=== PATIENT | male | born 1990 | race Caucasian/White ===

== ENCOUNTER 2020-06-09 17:13 | Emergency (ER) | payer SELFPAY ==
[2020-06-09 17:23] VITALS: BP 144/94; PULSE 97; RESP 18; TEMP 36.6; O2SAT 96; BMI 33.4
--- NOTE | 2020-06-09 18:20 | ED_ITS ---
HPI - Skin/Abscess/Foreign Bdy General: Chief complaint: Animal Bite Stated complaint: possible spider bite Time Seen by Provider: 06/09/20 18:20 Source: patient Mode of arrival: ambulatory Limitations: no limitations History of Present Illness: HPI narrative: Patient is a 30-year-old male presents to ED today with complaints of a possible spider bite to his left knee. Patient states he initially noticed the lesion a few days ago. He does have a history of staph infections. Patient is also noticed a smaller lesion that has come up recently to the left lower leg. He reports swelling. Patient has not been running fevers. MD complaint: insect bite/sting and abscess/boil Onset (ago): day(s) Tetanus up to date: yes Location: LLE Quality: burning Relieving factors: none Exacerbating factors: none Context: none Associated symptoms: Reports no associated symptoms; Deny chills, fever(s), nausea or vomiting Treatments prior to arrival: attempted to drain pus at home Review of Systems Const: Denies: fever(s), chills, body aches or fatigue Card: Denies: chest pain Resp: Denies: dyspnea GI: Denies: abdominal pain, nausea or vomiting Musc: Reports: extremity pain and extremity swelling; Denies: neck pain, back pain, joint pain, joint redness, joint warmth or limited range of motion Skin/Breast: Reports: new lesions Neuro: Denies: headache(s), numbness in extremities, weakness in extremities or sensory changes [facility] PFSH: Social History (Updated 06/09/20 @ 17:28 by Willian Barnes RN) Alcohol intake: current Alcohol intake frequency: 0-2 Drinks per Day Alcohol type: beer Substance/Drug Use: never Physical Exam Const: COMMON NORMALS: no acute distress, average body habitus, patient oriented x3, no limitations, healthy appearing, alert and well nourished Extremity: OTHER: pt has a 1.5 inch circular area of erythema to anterior L knee-lesion has small central pustule formation; he has one very small 0.5 flat erythematous lesion to lateral left lower leg; he has mild cellulitis forming to medial lower extremity; no significant swelling noted; NV intact Neuro: COMMON NORMALS: patient oriented x3 SENSORIUM/ORIENTATION: Yes alert Skin: OTHER: see extremity assessment Course Vital Signs: Vital signs: Vital Signs Temperature 97.9 F 06/09/20 17:23 Pulse Rate 85 06/09/20 18:29 Respiratory Rate 18 06/09/20 18:29 Blood Pressure 148/83 06/09/20 18:29 Pulse Oximetry 96 06/09/20 18:29 MDM - Skin/Abscess/Foreign Bdy MDM Narrative: Medical decision making narrative: pt will be placed on bactrim for the probable abscess/cellulitis; vitals are stable; labs unlikely to change any form of management so were not ordered; abscess not amendable to I&D at this time; return to ED precautions given Discharge Plan Discharge Patient Disposition: Home Clinical Impression: Cellulitis and abscess of left leg Condition: Stable Prescriptions: New Bactrim DS 800-160 mg tablet 2 tab PO BID 7 Days Qty: 28 RF: 0 Discharge Orders: Discharge Order (Routine); Ordered 06/09/20 Ordered By: Aviva Grace Patient Instructions: Cellulitis (ED), Abscess (ED), Skin Abscess, Skin Abscess - Antibiotics Activity Restrictions/Additional Instructions: Please begin your antibiotics immediately. You need to return to the emergency department for worsening symptoms despite antibiotic use over the next 48 hours. Return sooner for any severe redness, pain, fevers greater than 100.4, or any other concerns you may have. Discharge Date/Time: 06/09/20 18:30 Coding Level of Care Code ED Front Desk Worker for Anaya Romero
[2020-06-09 18:29] VITALS: BP 148/83; PULSE 85; RESP 18; O2SAT 96
== END 2020-06-09 18:30 | disposition home or self-care (01) ==
PROVIDERS: Emergency Provider Physician Assistant
DX: L03.116 Cellulitis of left lower limb (principal); L02.416 Cutaneous abscess of left lower limb
CPT/HCPCS: 12345; 99281; 99282